=== PATIENT | female | born 1985 ===

== ENCOUNTER 2017-04-19 20:50 | Emergency (ER) | payer MEDICAID, OTHER ==
[~2017-04-19] VITALS: Ht 154.9 cm; Wt 59.6 kg
[2017-04-19 22:28] LABS: CLUE CELLS NONE SEEN (NONE SEEN); MICROSCOPIC AUTO; WET PREP WBCS FEW (FEW)
[2017-04-19 22:30] LABS: CULTURE INDICATED? YES
[2017-04-19 23:41] VITALS: BP 128/72
== END 2017-04-19 23:43 | disposition home or self-care (01) ==
LOC: ED 22:32
DX: N30.91 Cystitis, unspecified with hematuria (principal); F17.200 Nicotine dependence, unspecified, uncomplicated; F12.10 Cannabis abuse, uncomplicated; Z20.2 Contact with and (suspected) exposure to infections with a predominantly sexual mode of transmission
CPT/HCPCS: 36415; 81001; 81025; 86592; 87077; 87086; 87186; 87210; 87491; 87591; 87806; 87808; 99284; G0475

== ENCOUNTER 2017-04-20 19:18 | Emergency (ER) | payer MEDICAID ==
[~2017-04-20] VITALS: Ht 154.9 cm; Wt 58.0 kg
[2017-04-20 19:25] VITALS: BP 139/89
== END 2017-04-20 19:56 | disposition home or self-care (01) ==
LOC: ED 19:34
DX: N30.00 Acute cystitis without hematuria (principal); Z76.0 Encounter for issue of repeat prescription; F32.9 Major depressive disorder, single episode, unspecified; I73.00 Raynaud's syndrome without gangrene; M32.9 Systemic lupus erythematosus, unspecified
CPT/HCPCS: 99283

== ENCOUNTER 2017-06-04 20:59 | Emergency (ER) | payer MEDICAID ==
[~2017-06-04] VITALS: Ht 154.9 cm; Wt 58.9 kg
[2017-06-04 21:15] VITALS: BP 124/79
[2017-06-04] MEDS ORDERED: KETOROLAC 30 MG/1 ML ONE (21:51)
[2017-06-04] MEDS ORDERED: KETOROLAC 30 MG/1 ML IM ONE (22:00)
[2017-06-04 22:05] LABS: MICROSCOPIC INDICATED
[2017-06-04 22:06] LABS: HCG UR SG 1.035 (1.003-1.030)
[2017-06-04 22:12] LABS: CULTURE INDICATED? NO
== END 2017-06-04 22:36 | disposition home or self-care (01) ==
LOC: ED 22:25
DX: M79.7 Fibromyalgia (principal)
CPT/HCPCS: 81001; 81025; 87491; 87591; 96372; 99284; J1885

== ENCOUNTER 2017-11-17 18:50 | Emergency (ER) | payer MEDICAID ==
[~2017-11-17] VITALS: Ht 154.9 cm; Wt 58.4 kg
[2017-11-17 18:52] VITALS: BP 110/64
[2017-11-17] MEDS ORDERED: AZITHROMYCIN 500 MG TABLET PO ONE (19:00)
[2017-11-17] MEDS ORDERED: CEFTRIAXONE 250 MG IM ONE (19:00)
[2017-11-17 19:32] LABS: CULTURE INDICATED? NO; MICROSCOPIC NOT IND
== END 2017-11-17 20:31 | disposition home or self-care (01) ==
LOC: ED 20:25
DX: R30.0 Dysuria (principal); Z20.2 Contact with and (suspected) exposure to infections with a predominantly sexual mode of transmission
CPT/HCPCS: 81003; 81025; 87491; 87591; 99284

== ENCOUNTER 2018-03-23 09:05 | Emergency (ER) | payer MEDICAID ==
[~2018-03-23] VITALS: Ht 154.9 cm; Wt 57.1 kg
[~2018-03-23 09:05] MED LIST: HYDR-3245 PO; OXYC-306 PO; TRAM50TA2 PO
[2018-03-23 09:07] VITALS: BP 130/95
--- NOTE | 2018-03-23 10:00 | NUR ---
PT TO ROOM FROM LOBBY
[2018-03-23] MEDS ORDERED: ACETAMINOPHEN 325 MG TABLET ONE (11:37)
[2018-03-23] MEDS ORDERED: ACETAMINOPHEN 325 MG TABLET PO ONE (12:00)
== END 2018-03-23 12:09 | disposition home or self-care (01) ==
LOC: ED 10:24
DX: S20.212A Contusion of left front wall of thorax, initial encounter (principal); S20.211A Contusion of right front wall of thorax, initial encounter; J45.909 Unspecified asthma, uncomplicated; F17.200 Nicotine dependence, unspecified, uncomplicated; Z98.51 Tubal ligation status; Y04.8XXA Assault by other bodily force, initial encounter; Y93.89 Activity, other specified; Y92.89 Other specified places as the place of occurrence of the external cause; Y99.8 Other external cause status
CPT/HCPCS: 71111; 99283

== ENCOUNTER 2020-05-07 18:28 | Emergency (ER) | payer MEDICAID ==
[~2020-05-07] VITALS: Ht 154.9 cm; Wt 67.1 kg
[~2020-05-07 18:28] MED LIST changes: -HYDR-3245 PO; +HYDR1TAB53 PO; -OXYC-306 PO; +OXYC1TAB17 PO
[2020-05-07 18:32] VITALS: BP 127/89
--- NOTE | 2020-05-07 19:06 | NUR ---
PT BROUGHT BACK TO ROOM FROM TRIAGE. PT STATES THAT SHE HAS A HX OF LUPUS, FIBROMYALGIA AND ASTHMA AND FEELS LIKE HER LUPUS IS "ACTING UP." PT STATES THAT SHE IS FATIGUED AND IN CONSTANT PAIN. PT STATED THAT SHE CANNOT KEEP UP WITH THE DEMANDS OF HER JOB D/T FATIGUE AND PAIN. PT JUST MOVED FROM [place] AND NEEDS TO ESTABLISH WITH A PCP TO GET ALL OF HER MEDICATIONS IN ORDER.
[2020-05-07] MEDS ORDERED: FLUORESCEIN OPHTHALMIC 1 MG STRIP ONE (19:19)
[2020-05-07] MEDS ORDERED: ONDANSETRON ODT 4 MG PO ONE (19:30)
[2020-05-07] MEDS ORDERED: ONDANSETRON ODT 4 MG ONE (19:33)
[2020-05-07 19:43] LABS: BASOPHILS % (AUTO) 1 % (0-1); EOSINOPHILS % (AUTO) 3 % (1-7); LYMPHOCYTES % (AUTO) 30 % (22-44); MEAN CORPUSCULAR HEMOGLOBIN 32.1 pg (27.0-34.8); MEAN CORPUSCULAR HGB CONC 33.4 g/dL (32.4-35.8); MONOCYTES % (AUTO) 7 % (2-9); NEUTROPHILS % (AUTO) 58 % (42-75); PLATELET COUNT 238 x10^3/uL (130-400); RED BLOOD COUNT 4.16 x10^6/uL (3.82-5.3); RED CELL DISTRIBUTION WIDTH 13.4 % (9.6-15.2)
[2020-05-07 19:45] LABS: MD NO
[2020-05-07 19:55] LABS: ALANINE AMINOTRANSFERASE 18 U/L (12-78); ALBUMIN 3.4 g/dL (3.4-5.0); ANION GAP 5 mmol/L (5-15); CALCIUM 8.2 mg/dL (8.5-10.1); CHLORIDE 109 mmol/L (98-107); CREATININE 0.79 mg/dL (0.55-1.02)
[2020-05-07 19:57] LABS: ALKALINE PHOSPHATASE 72 U/L (45-117); BILIRUBIN,TOTAL 0.3 mg/dL (0.2-1.0); TOTAL PROTEIN 7.4 g/dL (6.4-8.2)
--- NOTE | 2020-05-07 20:19 | NUR ---
DISCHARGE INSTRUCTIONS REVIEWED WITH PT. ALL QUESTIONS ANSWERED AT THIS TIME.
== END 2020-05-07 20:23 | disposition home or self-care (01) ==
LOC: ED 20:15
DX: K29.00 Acute gastritis without bleeding (principal); F17.200 Nicotine dependence, unspecified, uncomplicated; J45.909 Unspecified asthma, uncomplicated
CPT/HCPCS: 36415; 80053; 85025; 99283; Q0162